=== PATIENT | female | born 1980 | race Caucasian/White ===

== ENCOUNTER 2017-02-10 18:51 | Emergency (ER) | payer OTHER ==
[2017-02-10] MEDS ORDERED: SUMAtriptan SUCCINATE 6 MG/0.5 ML VIAL SQ ONE (19:11)
--- NOTE | 2017-02-10 19:30 | ED Physician Documentation ---
Headache - HISTORIAN Historian: patient - HPI Stated Complaint: MIGRAINE Chief Complaint: Headache Onset: days ago (5) Exposure To: none Severity: severe (8-9/10) Quality: similar to previous Associated Symptoms: nausea, vomiting (x1). denies: fever, chills, sweating, problems with vision, sensitivity to light, neck pain, stiffness, speech problems, weakness, trouble walking, tingling, numbness, dizziness, light- headedness, other Further Comments: yes (36 year old female patient presents with complaint of migraine x 5 days, states she has used tylenol, ibuprofen, excedrin migraine with no relief in the past 5 days.) - ROS NEURO/PSYCH: denies: confusion, anxiety, depression, fainting EYES/ENT: denies: sore throat, difficulty swallowing, sinus pain, drainage, other CVS/RESP: none GI/: denies: abdominal pain, diarrhea, problems urinating MS/SKIN/LYMPH: denies: muscle aches, back pain, rash all systems neg except as marked: Yes - PAST HX Medical History: migraines Surgical History: other (BLT) Allergies/Adverse Reactions: Allergies Allergy/AdvReac Type Severity Reaction Status Date / Time meperidine HCl [From Demerol] Allergy Unknown Hives Verified 02/10/17 19:03 Home Medications: Ambulatory Orders Medication Instructions Recorded NK [NK] 04/25/16 - SOCIAL HX Smoking History: cigarettes - Family HX Family History: denies: none - VITAL SIGNS Vital Signs: Vital Signs Temp Pulse Resp BP Pulse Ox 98.4 F 62 20 112/75 98 02/10/17 19:38 02/10/17 19:38 02/10/17 19:38 02/10/17 19:38 02/10/17 19:38 - REVIEWED ASSESSMENTS Nursing Assessment Reviewed: Yes Vitals Reviewed: Yes Progress - Progress Progress: Patient states migraine is better after imitrex. Discharged home with fioricet prn ED Results Lab/Radiology - Orders Orders: ED Orders Category Date Time Status SUMAtriptan SUCCINATE [Imitrex] Med 02/10/17 19:11 Discontinued 6 mg SQ NOW ONE Headache Physical Exam - EXAM General Appearance: mild distress EENT: no facial swelling, eyes nml inspection, PERRL. No: pain over sinuses Respiratory: no resp distress, chest non-tender, breath sounds normal CVS: reg. rate & rhythm, heart sounds nml Abdomen: non-tender, no organomegaly, nml bowel sounds, no distention Skin: color nml, no rash, warm, nml palp., dry Extremitites: non-tender, normal range of motion, no evidence of injury, no edema, J, MAILING SPECIALIST - NEURO/PSYCH Higher Functions: alert, oriented x3, nml speech, mood/affect nml Cranial: nml as tested, no evidence of acute CVA Cerebellar: nml as tested, nml gait Sensorimotor: motor nml, sensation nml Discharge Clincal Impression: Migraine Referrals: Primary Doctor,No [Primary Care Provider] - 2 Days Additional Instructions: Establish primary care - see list of free clinics attached. Home Medications: Ambulatory Orders NK [NK] 04/25/16 Condition: Stable Disposition: 01 HOME, SELF-CARE Decision to Admit: NO Decision Time: 19:30
[2017-02-10 19:39] VITALS: BP 112/75
== END 2017-02-10 20:16 | disposition home or self-care (01) ==
LOC: ED 18:51
DX: G43.909 Migraine, unspecified, not intractable, without status migrainosus (principal)
CPT/HCPCS: 96372; 99283; J3030

== ENCOUNTER 2017-06-05 17:22 | Emergency (ER) | payer OTHER ==
--- NOTE | 2017-06-05 18:11 | ED Physician Documentation ---
Sore Throat/Dental Pain - HISTORIAN Historian: patient - HPI Chief Complaint: Dental Pain Onset: days ago Context: Other (her tongue hurts). denies: Foreign Body, Fractured Tooth, Abscess, Dental Caries, Possible Infection Associated Symptoms: denies: fever, chills Worsened By: nothing. denies: heat, cold Further Comments: no - ROS CONST: no problems CVS/RESP: none GI/: other (she felt something coming out of her vagina, about 10 days ago, and has pain. she also has HPV). denies: problems urinating, nausea, vomiting MS/SKIN/LYMPH: denies: muscle aches, rash NEURO/PSYCH: none - PAST HX Past History: none Other History: none Allergies/Adverse Reactions: Allergies Allergy/AdvReac Type Severity Reaction Status Date / Time meperidine HCl [From Demerol] Allergy Unknown Hives Verified 06/05/17 17:52 Home Medications: Ambulatory Orders Medication Instructions Recorded NK [NK] 04/25/16 - SOCIAL HX Smoking History: non-smoker Alcohol Use: none Drug Use: none - FAMILY HX Family History: No - VITAL SIGNS Vital Signs: Vital Signs Temp Pulse Resp BP Pulse Ox 112/75 02/10/17 19:38 - REVIEWED ASSESSMENTS Nursing Assessment Reviewed: Yes Vitals Reviewed: Yes Progress - Results/Orders Results/Orders: she also has a vaginal issue but doesn't want me to examine her, I agreed but only because she promised she would go see a [employer] Dental Pain Physical Exam - EXAM General Appearance: no acute distress, alert Head/Neck: head nml inspection, other (tongue is unremarkable, there are no visble lesions. no ulcerations) Mouth/Throat: gums nml, pharynx nml, voice nml, no drooling, no air way problems , no thrush, membranes nml Ear/Nose: nml inspection Respiratory: no resp. distress Abdomen: soft Extremities: non-tender Skin: warm/dry Neuro/Psych: No: weakness, numbness Discharge Clincal Impression: Glossalgia Cystocele Qualifiers: Cystocele location: midline Qualified Code(s): N81.11 - Cystocele, midline Referrals: Primary Doctor,No [Primary Care Provider] - 2 Days Condition: Stable Disposition: 01 HOME, SELF-CARE Decision to Admit: NO Date of Decison to Admit: 06/05/17 Decision Time: 18:15
[2017-06-05 18:28] VITALS: BP 113/82
== END 2017-06-05 18:20 | disposition home or self-care (01) ==
LOC: ED 17:22
DX: K14.6 Glossodynia (principal); N81.11 Cystocele, midline
CPT/HCPCS: 99283

== ENCOUNTER 2019-08-26 11:16 | Outpatient (CLI) | payer OTHER ==
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
== END 2019-08-26 11:21 ==
LOC: RAD 11:16
PROVIDERS: ATTEND Nurse Practitioner Family
DX: M54.2 Cervicalgia (principal); R51 Headache
CPT/HCPCS: 72050

== ENCOUNTER 2019-09-15 11:10 | Emergency (ER) | payer OTHER ==
[2019-09-15] MEDS ORDERED: cefTRIAXone SODIUM 250 MG INJ IM ONE (11:37)
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
[2019-09-15] MEDS ORDERED: Lidocaine 1% 5ml 10 MG/ML VIAL IM ONE (11:38)
[2019-09-15] MEDS ORDERED: AZITHROMYCIN 250 MG TABLET PO ONE (11:39)
[2019-09-15] MEDS ORDERED: metroNIDAZOLE 500 MG TABLET PO ONE (11:40)
[2019-09-15 12:29] VITALS: BP 136/94
[2019-09-16 06:08] LABS: APPEARANCE,URINE CLEAR (CLEAR); COLOR,URINE YELLOW (YELLOW); OCCULT BLOOD,URINE NEGATIVE (NEGATIVE); UROBILINOGEN URINE 0.2 Eu (0.2-1.0)
== END 2019-09-15 12:23 | disposition home or self-care (01) ==
LOC: ED 11:10
DX: Z20.2 Contact with and (suspected) exposure to infections with a predominantly sexual mode of transmission (principal)
CPT/HCPCS: 36415; 81002; 86703; 86803; J0696